=== PATIENT | male | born 1955 | race Caucasian/White ===

== ENCOUNTER 2016-10-29 07:13 | Inpatient (IN) | payer OTHER ==
--- NOTE | 2016-10-16 14:03 | HP ---
HISTORY AND PHYSICAL: DATE OF OFFICE VISIT: 10/16/16 DATE OF SURGERY: 10/29/16 PROCEDURE: Left total hip arthroplasty. HISTORY OF PRESENT ILLNESS: Phill is a 61-year-old gentleman with complaints of left hip pain. He has failed conservative management and has elected to proceed with the a left total hip arthroplasty . The surgery is scheduled for 10/29/[address] Whitley. PAST MEDICAL HISTORY: 1. Hypertension. 2. Hypercholesterolemia. PAST SURGICAL HISTORY: 1. ORIF left ankle. 2. Testicle surgery. CURRENT MEDICATIONS: 1. [place] 10/325 mg. 2. Atenolol/hydrochlorothiazide. 3. Atorvastatin. ALLERGIES: No known drug allergies. FAMILY HISTORY: Denies. SOCIAL HISTORY: This is a 61-year-old gentleman who lives alone. He is self- employed contractor. He smokes a pack and a half of cigarettes a day for the last 50 years. He does use alcohol. He de nies use of illicit drugs. REVIEW OF SYSTEMS: A complete 14-point review of systems was reviewed with the patient; all was neg ative or noncontributory. PHYSICAL EXAMINATION GENERAL: He is well developed, well nourished, in no acute distress. VITAL SIGNS: He stands 6 feet 2 inches tall, weighs 220 pounds, his blood pressure is 163/96, and h is heart rate is 64. HEENT: Normocephalic, atraumatic. NECK: Supple. No palpable lymph nodes. Trachea is midline. PULMONARY: The lungs are clear to auscultation bilaterally. No wheezes, rhonchi, or rales. CARDIO: Regular rate and rhythm. Strong S1, S2. No murmurs, gallops, or rubs. No peripheral edema . ABDOMEN: Soft, nontender, and nondistended. NEUROLOGIC: He is alert and oriented x3. Cranial nerves II through XII are intact. MUSCULOSKELETAL: Left lower extremity, the skin is intact. He walks with a slightly antalgic type gait favoring his left leg. He has limited range of motion with internal and external rotation of t he left hip. He has 2+ dorsalis pedis pulses. Intact sensation with pinprick and light touch over both legs and feet. His lower extremity muscular strengths were intact and 5/5. ASSESSMENT AND PLAN: Phill is a 61-year-old gentleman with complaints of left hip pain. He has fa iled conservative management and has elected to proceed with a left total hip arthroplasty. This malik rgery is scheduled for 10/29/[address] Whitley discussed the risks and benefits of the malik rgclarisse at today's visit and all of his questions were answered. Coumadin, Colace, and Percocet presc riptions were printed and given to the patient [facility] an d DVT prophylaxis. He will see Dr. Whitley back in 10 to 14 days after the surgery. ERNESTO GIVENS [id number]/[facility] #: [id number]
[~2016-10-29 07:13] MED LIST: Buffered Lidocaine 1% SYR 3ML* 3 ML/SYR SYRINGE INTRADERM ONE; Dexamethasone IV* 4 MG/ML 1 ML (4 MG) IV SLOW PU ONE; Famotidine IV* 10 MG/ML 2 ML (20 mg) IV ONE
[2016-10-29] MEDS ORDERED: ceFAZolin 2 GM PREMIX (*) 2 GM/50 ML BAG IVPB ONE (07:43)
[2016-10-29] MEDS ORDERED: Dexamethasone IV* 4 MG/ML 1 ML (4 MG) ONE (07:43)
[2016-10-29] MEDS ORDERED: Famotidine IV* 10 MG/ML 2 ML (20 mg) ONE (07:43)
[2016-10-29] MEDS ORDERED: Bupivacaine 0.5% SDV PF* 30 ML VIAL ONE ×2 (07:54→08:07)
[2016-10-29] MEDS ORDERED: HYDROmorphone INJ* 1 MG/ML CARPUJECT SYRINGE ONE ×2 (08:02→09:37)
[2016-10-29] MEDS ORDERED: Morphine PF AMP (0.5MG/ML)* 5 MG/10 ML AMP ONE (08:03)
[2016-10-29] MEDS ORDERED: Midazolam* 1 MG/ML 5 ML VIAL (5 MG) ONE (08:03)
[2016-10-29] MEDS ORDERED: fentaNYL* 50 MCG/ML 2 ML VIAL (100 MCG VIAL) ONE ×2 (08:03→09:37)
[2016-10-29] MEDS ORDERED: Propofol* 10 MG/ML 20 ML BTL IV PUSH ONE (08:07)
[2016-10-29] MEDS ORDERED: Dexmedetomidine* 200 MCG/2 ML 2 ML VIAL ONE (08:07)
[2016-10-29] MEDS ORDERED: Ondansetron INJ* 2 MG/ML VIAL IV PRN ×2 (08:26→13:06)
[2016-10-29] MEDS ORDERED: PROCHLORPERAZINE INJ 5 MG/ML 2 ML VIAL IV PRN ×2 (08:26→13:06)
[2016-10-29] MEDS ORDERED: DiMENhydriNATE IV* 50 MG/ML VIAL IV PUSH PRN ×2 (08:26→13:06)
[2016-10-29] MEDS ORDERED: fentaNYL* 50 MCG/ML 2 ML VIAL (100 MCG VIAL) IV PRN (08:26)
[2016-10-29] MEDS ORDERED: Glycopyrrolate IV* 0.2 MG/ML 1 ML VIAL ONE (11:21)
[2016-10-29] MEDS ORDERED: Naloxone* 0.4 MG/ML 1 ML VIAL IV PRN (13:06)
[2016-10-29] MEDS ORDERED: diPHENhydraMINE IV* 50 MG/ML 1 ml VIAL (BENADRYL) IV PRN (13:06)
[2016-10-29] MEDS ORDERED: Nalbuphine* 20 MG/ML 1 ML VIAL IV PRN (13:06)
[2016-10-29] MEDS ORDERED: Bisacodyl SUPP* 10 MG SUPP PR PRN (13:13)
[2016-10-29] MEDS ORDERED: Polyethylene Glycol 3350* 17 GM PACKET PO PRN (13:13)
[2016-10-29] MEDS ORDERED: LORazepam TAB(*) 0.5 MG PO PRN (13:25)
[2016-10-29] MEDS ORDERED: Scopolamine PATCH Remove* 1 NOTE MISC PATCH OFF SCH (14:00)
[2016-10-29] MEDS ORDERED: Enoxaparin(*) 30 MG/0.3 ML SYR SUBCUT SCH (14:00)
[2016-10-29] MEDS ORDERED: Scopolamine 1.5 mg* PATCH TRANSDERM SCH (14:00)
--- NOTE | 2016-10-29 14:54 | RAD ---
Indication: Left total hip replacement 2 views of the left hip demonstrates left hip replacement in satisfactory position. No loosening is noted. IMPRESSION: Left hip replacement in satisfactory position.
--- NOTE | 2016-10-29 14:55 | RAD ---
Indication: Left hip total replacement. Single view of the lower pelvis including the proximal femurs demonstrates bipolar left hip arthroplasty in satisfactory position. Components appear to be in satisfactory position. IMPRESSION: Left hip replacement in satisfactory position.
--- NOTE | 2016-10-29 15:12 | RAD ---
Indication: Left hip replacement Single view of the pelvis taken in the operating room demonstrates acetabular cup and femoral reamer in place. IMPRESSION: Single view of the pelvis performed for left hip prosthesis in evaluation.
[2016-10-29] MEDS: Nicotine PATCH 21 MG/24 HR* PATCH TRANSDERM SCH (15:45)
[2016-10-29] MEDS: ceFAZolin 1 GM in Dextrose (*) 1 GM/50 ML BAG IVPB SCH (16:26)
[2016-10-29] MEDS ORDERED: Warfarin TAB(*) 6 MG PO ONE (17:00)
--- NOTE | 2016-10-29 17:03 | CONS ---
CONSULTATION REPORT: DATE OF CONSULT: 10/29/16 PRIMARY CARE PROVIDER: ANGELITO Mars from [place] office in [place]. PHYSICIAN REQUESTING CONSULT: Dr. Whitley. CHIEF COMPLAINT: Status post left total hip arthroplasty. Consult was requested for medical management of this patient with a history of smoking, alcohol use, and hypertension. HISTORY OF PRESENT ILLNESS: Phill Carey is a 61-year-old male with a history of hypertension and dyslipidemia who has had problems with left hip osteoarthritic pain for the past several months and he is now status post left total hip arthroplasty performed by Dr. Whitley. The patient currently is residing in PACU area. He feels fine. He denies any pain. PAST MEDICAL HISTORY: 1. Hypertension. 2. Hypercholesterolemia. 3. Status post left ankle ORIF. 4. History of right foot surgery after trauma. 5. History of testicular surgery. MEDICATIONS: At home include: 1. [place] 10/325 mg p.r.n. 2. Hydrochlorothiazide 25 mg daily. 3. Atenolol 50 mg daily. 4. Lipitor 20 mg daily. ALLERGIES: No known drug allergies. FAMILY HISTORY: Reviewed and noncontributory. SOCIAL HISTORY: The patient is a self-employed contractor. His sister, Georgiana Henriquez, is his surrogate. He lives by himself. He smokes a pack a day of cigarettes and he has been doing so ever since he was 16 years old. He drinks 6 pack a day. He denies any drug use. REVIEW OF SYSTEMS: Positive for bilateral foot pain from his chronic osteoarthritic pain. Positive for left hip pain. He denies any chest pain or shortness of breath. All the remaining 14 systems were reviewed and were otherwise negative. PHYSICAL EXAM: Blood pressure of 121/75, heart rate of 78 and regular, respiratory rate 14, oxygen saturation 93% on 4 L of oxygen nasal cannula, and temperature 97.7. General: The patient is a very pleasant 61-year-old male who is in no acute distress. Alert, awake, and oriented x3. HEENT: Head: Atraumatic, normocephalic. Eyes: Pupils equal, reactive to light and accommodation. Oropharynx clear. Mucosa moist. Neck: Supple. No JVD, no bruit bilaterally. Cardiovascular: Regular rate and rhythm. No murmur. Respiratory: Clear to auscultation bilaterally. Abdomen: Soft, nontender. Bowel sounds present in all 4 quadrants. Extremities: There is no edema. Pulses are +2 bilaterally. No clubbing or cyanosis. On evaluation of the skin , the patient's left postoperative hip is covered with postop dressings, not removed. There is no evidence of hematoma or edema. Neuro Evaluation: Speech clear. Cranial nerves II through XII grossly intact. Motor strength is 5/5 bilaterally. DIAGNOSTIC STUDIES/LAB DATA: None recently performed. ASSESSMENT AND PLAN: A 61-year-old male with a history of alcohol abuse, tobacco smoking, and hypertension who presents status post left hip arthroplasty. 1. In regards to the patient's status post left hip arthroplasty, he is planning to go to [facility]. Case management to follow. 2. In regards to the patient's hypertension, his hydrochlorothiazide and his atenolol are going to be continued. 3. In regards to dyslipidemia, agree with continuation of Lipitor. 4. In regards to history of smoking, the patient was strongly advised to quit. He so far is not interested in quitting. He is going to be placed on nicotine patch for the time being. 5. In regards to history of alcohol use, the patient is going to be observed for withdrawal symptoms. 6. For DVT prophylaxis, it is going to be addressed by the primary service by Orthopedics. 7. Code status: The patient's code status is full. TIME SPENT: Approximately 55 minutes was spent on consultation of this patient , more than half that time was spent [id number] with the patient during the interview and physical exam. CC: ANGELITO Mars; Dr. Whitley* [id number]/[facility] #: [id number] [facility] CENTERIsmael
[2016-10-29] MEDS: oxyCODONE/Acetamin 5/325 MG* TAB PO PRN ×2 (18:32→22:22)
[2016-10-29] MEDS: Docusate CAP* 100 MG PO SCH (20:48)
[2016-10-29] MEDS: Magnesium Hydroxide LIQ* 30 ML UDC PO SCH (20:48)
[2016-10-29] MEDS ORDERED: Nicotine Patch Removal NOTE PATCH OFF SCH (21:00)
[2016-10-30] MEDS: ceFAZolin 1 GM in Dextrose (*) 1 GM/50 ML BAG IVPB SCH ×2 (00:11→07:58)
[2016-10-30] MEDS ORDERED: Morphine INJ* 10 MG/ML 1 ML CARPUJECT IV PRN (01:00)
[2016-10-30] MEDS ORDERED: Ondansetron TAB* 4 MG PO PRN (01:00)
[2016-10-30] MEDS ORDERED: oxyCODONE/Acetamin 5/325 MG* TAB PO PRN (01:00)
[2016-10-30] MEDS ORDERED: Ondansetron INJ* 2 MG/ML VIAL IV PRN (01:00)
[2016-10-30] MEDS ORDERED: diPHENhydraMINE PO* 25 MG PO PRN (01:00)
[2016-10-30] MEDS ORDERED: diPHENhydraMINE IV* 50 MG/ML 1 ml VIAL (BENADRYL) IV PRN (01:00)
[2016-10-30] MEDS: oxyCODONE TAB* 5 MG TAB PO PRN ×3 (03:25→11:58)
[2016-10-30] MEDS ORDERED: NS 0.9% 1000 ML* 1,000 ML IV ONE (05:30)
[2016-10-30 07:04] LABS: Hematocrit 39 % (42-52); Hemoglobin 13.6 g/dl (14.0-18.0)
[2016-10-30 07:16] LABS: BUN/Creatinine Ratio 18.1 (8-20); Calcium 8.8 mg/dL (8.6-10.3); EGFR African American 92.7 (>60); Potassium 3.6 mmol/L (3.5-5.0)
[2016-10-30] MEDS: Docusate CAP* 100 MG PO SCH (08:02)
[2016-10-30] MEDS: Nicotine PATCH 21 MG/24 HR* PATCH TRANSDERM SCH (08:02)
[2016-10-30] MEDS: Magnesium Hydroxide LIQ* 30 ML UDC PO SCH (08:04)
[2016-10-30] MEDS ORDERED: Hydrochlorothiazide TAB* 25 MG PO SCH (09:00)
[2016-10-30] MEDS ORDERED: Atorvastatin* 20 MG TAB PO SCH (09:00)
[2016-10-30] MEDS ORDERED: Thiamine TAB* 100 MG TAB PO SCH (09:00)
[2016-10-30] MEDS ORDERED: Folic Acid TAB* 1 MG PO SCH (09:00)
[2016-10-30] MEDS ORDERED: Atenolol TAB* 50 MG PO SCH (09:00)
--- NOTE | 2016-10-30 09:32 | PN ---
Subjective Date of Service: 10/30/16 Interval History: pt feels well. Plans to go to [facility] for rehab. Objective Active Medications: Atenolol (Tenormin Tab*) 50 mg PO QAM [facility] Last Admin: 10/30/16 08:02 Dose: 50 mg Atorvastatin Calcium (Lipitor*) 20 mg PO QAM [facility] Last Admin: 10/30/16 08:01 Dose: 20 mg Bisacodyl (Dulcolax Supp*) 10 mg [place] DAILY PRN PRN Reason: constipation Diphenhydramine HCl (Benadryl Iv*) 12.5 mg IV Q6H PRN PRN Reason: PRURITIS Diphenhydramine HCl (Benadryl Po*) 25 mg PO Q6H PRN PRN Reason: itching Docusate Sodium (Colace Cap*) 100 mg PO BID [facility] Last Admin: 10/30/16 08:02 Dose: 100 mg Enoxaparin Sodium (Lovenox(*)) 30 mg SUBCUT Q24H [facility] Folic Acid (Folvite Tab*) 1 mg PO DAILY [facility] Last Admin: 10/30/16 08:02 Dose: 1 mg Hydrochlorothiazide ([facility]il Tab*) [facility] Last Admin: 10/30/16 08:02 Dose: 25 mg Lactulose (Lactulose*) 30 ml PO Q6H PRN PRN Reason: constipation Lorazepam (Ativan Tab(*)) 0.5 mg PO Q4H PRN PRN Reason: AGITATION/ANXIETY Magnesium Hydroxide (Milk Of Magnesia Liq*) 30 ml PO BID [facility] Last Admin: 10/30/16 08:04 Dose: Not Given Morphine Sulfate (Morphine Inj (Syringe)*) 5 mg IV Q2H PRN PRN Reason: SEVERE PAIN Nicotine (Nicotine Patch 21 Mg/24 Hr*) 1 patch TRANSDERM 0800 [facility] Last Admin: 10/30/16 08:02 Dose: Not Given Ondansetron HCl (Zofran Inj*) 4 mg IV Q6H PRN PRN Reason: nausea Ondansetron HCl (Zofran Tab*) 4 mg PO Q6H PRN PRN Reason: NAUSEA Oxycodone HCl (Roxycodone Tab*) 10 mg PO Q4H PRN PRN Reason: breaktrough pain Last Admin: 10/30/16 08:01 Dose: 10 mg Oxycodone/Acetaminophen (Percocet 5/325 Tab*) 1 tab PO Q3H PRN PRN Reason: mild to moderate pain Pharmacy Profile Note (Scopolomine Patch Remove*) 1 note PATCH OFF .AFTER 72 HOURS [facility] Stop: 11/01/16 13:07 Pharmacy Profile Note (Nicotine Patch Removal Note*) 1 note PATCH OFF 2100 [facility] Last Admin: 10/29/16 20:46 Dose: Not Given Polyethylene Glycol/Electrolytes (Miralax*) 17 gm PO DAILY PRN PRN Reason: Constipation Scopolamine (Transderm-Scop 1.5 Mg Patch*) 1 patch TRANSDERM Q72H [facility] Last Admin: 10/29/16 15:46 Dose: Not Given Thiamine HCl (Vitamin B-1 Tab*) 100 mg PO DAILY [facility] Last Admin: 10/30/16 08:01 Dose: 100 mg Vital Signs 10/29/16 10/29/16 10/29/16 12:58 13:00 13:05 Temperature 97.7 F Pulse Rate 82 90 66 Respiratory 12 12 14 Rate Blood Pressure 132/88 151/87 148/78 (mmHg) O2 Sat by Pulse 95 92 92 Oximetry 10/29/16 10/29/16 10/29/16 13:10 13:15 13:30 Temperature Pulse Rate 70 68 78 Respiratory 12 12 14 Rate Blood Pressure 144/85 151/83 121/75 (mmHg) O2 Sat by Pulse 92 92 93 Oximetry 10/29/16 10/29/16 10/29/16 13:45 14:00 14:15 Temperature 97.0 F Pulse Rate 73 72 80 Respiratory 12 12 14 Rate Blood Pressure 134/75 123/77 119/81 (mmHg) O2 Sat by Pulse 93 94 94 Oximetry 10/29/16 10/29/16 10/29/16 14:39 15:15 15:19 Temperature 98.8 F 98.8 F Pulse Rate 76 74 74 Respiratory 16 16 16 Rate Blood Pressure 109/69 120/67 120/67 (mmHg) O2 Sat by Pulse 97 97 97 Oximetry 10/29/16 10/29/16 10/29/16 16:00 16:45 18:17 Temperature 98.8 F 98.1 F Pulse Rate 78 91 Respiratory 22 20 Rate Blood Pressure 120/73 118/74 (mmHg) O2 Sat by Pulse 96 97 97 Oximetry 10/29/16 10/29/16 10/29/16 18:27 18:32 19:09 Temperature Pulse Rate Respiratory 18 16 Rate Blood Pressure (mmHg) O2 Sat by Pulse 97 Oximetry 10/29/16 10/29/16 10/29/16 19:20 20:32 20:40 Temperature 98.5 F Pulse Rate 102 Respiratory 16 16 16 Rate Blood Pressure 123/72 (mmHg) O2 Sat by Pulse 95 Oximetry 10/29/16 10/29/16 10/29/16 21:09 22:22 23:09 Temperature Pulse Rate Respiratory 16 16 16 Rate Blood Pressure (mmHg) O2 Sat by Pulse Oximetry 10/30/16 10/30/16 10/30/16 00:00 00:06 00:09 Temperature 97.9 F Pulse Rate 85 Respiratory 18 16 Rate Blood Pressure 136/70 (mmHg) O2 Sat by Pulse 95 95 Oximetry 10/30/16 10/30/16 10/30/16 00:22 02:06 03:06 Temperature Pulse Rate Respiratory 17 16 17 Rate Blood Pressure (mmHg) O2 Sat by Pulse Oximetry 10/30/16 10/30/16 10/30/16 03:22 03:25 05:06 Temperature 97.9 F Pulse Rate 76 Respiratory 16 16 16 Rate Blood Pressure 136/82 (mmHg) O2 Sat by Pulse 91 Oximetry 10/30/16 10/30/16 10/30/16 05:25 07:42 08:01 Temperature 97.5 F Pulse Rate 78 Respiratory 16 18 16 Rate Blood Pressure 122/67 (mmHg) O2 Sat by Pulse 96 Oximetry Oxygen Devices in Use Now: None Appearance: 61 yo M in nAD, aAOx3 Eyes: No Scleral Icterus, PERRLA Ears/Nose/Mouth/Throat: NL Teeth, Lips, Gums, Mucous Membranes Moist Neck: NL Appearance and Movements; NL JVP, Trachea Midline Respiratory: Symmetrical Chest Expansion and Respiratory Effort, Clear to Auscultation Cardiovascular: NL Sounds; No Murmurs; No JVD, RRR Abdominal: NL Sounds; No Tenderness; No Distention, No Hepatosplenomegaly Lymphatic: No Cervical Adenopathy Extremities: No Edema, No Clubbing, Cyanosis Skin: No Nodules or Sclerosis, - - left thigh evaluated, no hematoma or erythema noted, post op dressings not removed Result Diagrams: 10/30/16 06:06 10/30/16 06:06 Assess/Plan/Problems-Billing Assessment: 61 yo M with h/o ETOH/tobacco abuse, HTN, dyslipidemia s/p left hip replacement by Dr. Whitley on 10/29/16 - Patient Problems (1) Status post left hip replacement Comment: doing well, as per Dr. Whitley (2) HTN (hypertension) Comment: cont Atenolol and HCTZ, controled (3) Tobacco abuse Comment: counseled on 10/29/16 cont nicotine patch (4) ETOH abuse Comment: drinks 6 pack /day, no signs of withdrawal. cont to monitor (5) DVT prophylaxis Comment: on lovenox and coumadin as per orthopedic service
--- NOTE | 2016-10-30 10:00 | PN ---
Progress Note - Progress Note SOAP: Subjective: [61 y/o male s/p left total hip replacement 10/29. VSS, afebrile. eager for D/C today. No compliants, pain well tolerated, PO pain medications working well. ] Objective: [General- Well appearing, sitting in bed comfortably. MSK- Dressing intact, no drainage noted, + DF/PF. neg homans L leg, minimal swelling, L LE"s. sensation grossly intact. Vital Signs Temp 97.5 F 10/30/16 07:42 Pulse 78 10/30/16 07:42 Resp 16 10/30/16 08:01 BP 122/67 10/30/16 07:42 Pulse Ox 96 10/30/16 07:42 Intake & Output 10/29/16 10/30/16 10/30/16 18:59 06:59 18:59 Intake Total 4010 1946 440 Output Total 700 100 Balance 3310 1846 440 Weight 214 lb 6.4 oz Intake: IV Fluids 2600 1281 LR 2500 1281 NS 50ML, Cefazolin 2G 100 IVPB 105 ABX - CEFAZOLIN 105 Oral 1410 560 440 Output: Urine 100 Schrader 400 0 Estimated Blood Loss 300 Laboratory Results - last 24 hr 10/30/16 10/30/16 10/30/16 06:06 06:06 06:06 Hgb 13.6 L Hct 39 L INR (Anticoag Therapy) 0.98 Sodium 131 L Potassium 3.6 Chloride 95 L Carbon Dioxide 28 Anion Gap 8 BUN 19 Creatinine 1.05 Est GFR ( Amer) 92.7 Est GFR (Non-Af Amer) 72.0 BUN/Creatinine Ratio 18.1 Glucose 142 H Calcium 8.8 ] Assessment: [61 y/o male s/p left total hip replacement 10/29] Plan: [- DVT prophyl- coumadin 6mg tonight, continue lovenox. - Continue PT/ OT - H&H stable ] Active Medications Generic Name Dose Route Start Last Admin Trade Name Freq PRN Reason Stop Dose Admin Atenolol 50 mg 10/30/16 09:00 10/30/16 08:02 Tenormin Tab* PO 50 mg QAM [facility] Administration Atorvastatin Calcium 20 mg 10/30/16 09:00 10/30/16 08:01 Lipitor* PO 20 mg QAM [facility] Administration Bisacodyl 10 mg 10/29/16 13:13 Dulcolax Supp* [place] DAILY PRN constipation Diphenhydramine HCl 12.5 mg 10/30/16 01:00 Benadryl Iv* IV Q6H PRN PRURITIS Diphenhydramine HCl 25 mg 10/30/16 01:00 Benadryl Po* PO Q6H PRN itching Docusate Sodium 100 mg 10/29/16 21:00 10/30/16 08:02 Colace Cap* PO 100 mg BID [facility] Administration Enoxaparin Sodium 30 mg 10/30/16 14:00 Lovenox(*) SUBCUT Q24H [facility] Folic Acid 1 mg 10/30/16 09:00 10/30/16 08:02 Folvite Tab* PO 1 mg DAILY [facility] Administration Hydrochlorothiazide 25 mg 10/30/16 09:00 10/30/16 08:02 Hydrodiuril Tab* PO 25 mg QAM [facility] Administration Lactulose 30 ml 10/29/16 13:13 Lactulose* PO Q6H PRN constipation Lorazepam 0.5 mg 10/29/16 13:25 Ativan Tab(*) PO Q4H PRN AGITATION/ANXIETY Magnesium Hydroxide 30 ml 10/29/16 21:00 10/30/16 08:04 Milk Of Magnesia Liq* PO Not Given BID [facility] Morphine Sulfate 5 mg 10/30/16 01:00 Morphine Inj (Syringe)* IV Q2H PRN SEVERE PAIN Nicotine 1 patch 10/29/16 14:00 10/30/16 08:02 Nicotine Patch 21 Mg/24 Hr* TRANSDERM Not Given 0800 [facility] Ondansetron HCl 4 mg 10/30/16 01:00 Zofran Inj* IV Q6H PRN nausea Ondansetron HCl 4 mg 10/30/16 01:00 Zofran Tab* PO Q6H PRN NAUSEA Oxycodone HCl 10 mg 10/30/16 01:00 10/30/16 08:01 Roxycodone Tab* PO 10 mg Q4H PRN Administration breaktrough pain Oxycodone/Acetaminophen 1 tab 10/30/16 01:00 Percocet 5/325 Tab* PO Q3H PRN mild to moderate pain Pharmacy Profile Note 1 note 10/29/16 14:00 Scopolomine Patch Remove* PATCH OFF 11/01/16 13:07 .AFTER 72 HOURS [facility] Pharmacy Profile Note 1 note 10/29/16 21:00 10/29/16 20:46 Nicotine Patch Removal Note* PATCH OFF Not Given 2100 [facility] Polyethylene Glycol/Electrolytes 17 gm 10/29/16 13:13 Miralax* PO DAILY PRN Constipation Scopolamine 1 patch 10/29/16 14:00 10/29/16 15:46 Transderm-Scop 1.5 Mg Patch* TRANSDERM Not Given Q72H [facility] Thiamine HCl 100 mg 10/30/16 09:00 10/30/16 08:01 Vitamin B-1 Tab* PO 100 mg DAILY [facility] Administration
--- NOTE | 2016-10-30 11:32 | OP ---
OPERATIVE REPORT: DATE OF OPERATION: 10/29/16 DATE OF : 57 SURGEON: Sade Whitley MD WRIST HEMMER: ERNESTO Gabriel ANESTHESIOLOGIST: Dr. Jon. ANESTHESIA: Spinal. PRE-OP DIAGNOSIS: Severe end-stage degenerative osteoarthritis of the left hip joint. POST-OP DIAGNOSIS: Severe end-stage degenerative osteoarthritis of the left hip joint. OPERATIVE PROCEDURE: Total hip arthroplasty. COMPLICATIONS: None. ESTIMATED BLOOD LOSS: 400 cc. SPECIMENS: Femoral head and acetabular reaming sent to pathology. HARDWARE USED: This is uncemented Valente total hip hardware. For the cup, a Tritanium hemispheric al cluster hole shell size 62G. Insert as a Trident X3 0- degree polyethylene insert 40G. For the femur, an Accolade TMZF size 4, 132-degree neck with Biolox delta ceramic head size 40 with +4 adapt er sleeve. BRIEF HISTORY/INDICATIONS: Mr. Carey is a 61-year-old gentleman with years of increasingly severe left hip pain. He failed conservative treatment with antiinflammatories, pain medications, and phys ical therapy. Radiographs showed [id number] arthritis and he elected to undergo left total hip ar throplasty due to continued pain and decreased quality of life. Informed consent was obtained from the patient. He understood the risks of the procedure included b ut were not limited to bleeding, infection, damage to nearby structures, continued pain, need for fu rther surgery, intraoperative fracture, nerve palsy, hardware failure or loosening, dislocation, leg length discrepancy, stroke, heart attack, blood clot, . He wished to proceed. INTRAOPERATIVE FINDINGS: Intraoperatively, the patient was noted to have severe end-stage arthritis of the hip joint with complete loss of cartilage in the femoral head and acetabulum. Significant o steophyte formation along the entire femoral head neck junction and acetabular rim. DESCRIPTION OF PROCEDURE: Mr. Carey was identified in the preoperative unit. His left lower extre mity was marked as the correct operative side. Informed consent was signed and placed in the chart. The patient was taken to the operating room and placed under spinal anesthesia. A Schrader catheter was placed. The patient was placed in the right lateral decubitus position on the peg board and all bony prominences were well padded. The left lower extremity was prepped and draped in the usual st erile fashion. Preop time-out was made to correctly identify the patient, side, and site. Appropri ate perioperative antibiotics were given within 1 hour of incision. A 12-cm posterior hip incision was made with a #10 blade and carried down to the lateral fascial lay er. Lateral fascial layer was incised in line with skin incision. A Charnley retractor was placed. Posterior aspect of the hip joint was easily visualized. The piriformis and conjoint tendons were identified. These were elevated off the posterolateral femur using electrocautery and tagged with two #5 Ethibond. Next, the electrocautery was used to make a standard posterolateral capsular flap. This flap was also tagged with two #5 Ethibond. The hip was carefully dislocated at this point. Lesser trochanter to center of the femoral head measured 60 mm. Oscillating saw was used to make th e appropriate femoral neck cut. The femoral head was carefully removed and sent to pathology. The femur was carefully retracted anteriorly. After appropriate placement of retractor, the acetabu lum was easily visualized. A long-handled knife was used to remove any remaining labrum from the ac etabular rim. Electrocautery was used to remove soft tissue and inflammatory fibrous tissue from th e cotyloid notch region. Next, the acetabulum was sequentially reamed up to a size 61. 61 trial had excellent stability. A 62 Tritanium cluster hole shell was chosen as a final implant. This was impacted into the acetabu lum without difficulty. There was excellent stability as well as appropriate anteversion and abduct ion angle. A Trident X3 0-degree polyethylene insert 40G was chosen. This was impacted into the ac etabulum without difficulty. Next, attention was turned to preparation of the proximal femur. Box cut osteotome and canal finder were used to enter the proximal femur. The proximal femur was sequentially broached up to a size 4 . A 132-degree neck trial was chosen as well as a 40 +0 femoral head trial. The hip was reduced an d taken through range of motion. The hip was stable in all positions. The hip was carefully dislocated. All trials were carefully removed. An Accolade TMZF size 3 with a 132-degree neck was chosen as final implant. This was impacted into the femoral canal without dif ficulty. There was excellent stability and fit. A 40 +4 ceramic Biolox femoral head was chosen with an adapter sleeve. This was impacted onto the femoral neck without difficulty. The hip was reduce d and taken through range of motion. The hip was stable in all positions. Previously tagged capsul e and tendons were reapproximated to the posterolateral femur through two trochanteric drill holes. The hip was copiously irrigated with sterile saline. The lateral fascial layer was closed using int errupted #1 Vicryl's. The rest of the incision was closed in a layered fashion using 0 and 2-0 Vicr yl's. Skin was closed using running 3-0 Monocryl suture and Dermabond. Sterile Adaptic,4x4's and p aper tape were used to cover the incision. The patient's anesthesia was reversed without difficulty. He was taken to the PACU in stable condit ion. Intended weightbearing will be weightbearing as tolerated with posterior hip precautions. Int ended DVT prophylaxis will be Coumadin with Lovenox bridge. [id number]/[facility] #: [id number]
[2016-10-30 13:16] VITALS: BP 133/75
[2016-10-30] MEDS ORDERED: Enoxaparin(*) 30 MG/0.3 ML SYR SUBCUT SCH (14:00)
--- NOTE | 2016-10-31 03:22 | DS ---
DISCHARGE SUMMARY: DATE OF ADMISSION: 10/29/16 DATE OF DISCHARGE: 10/30/16 SURGEON: Sade Whitley MD PRINCIPAL DIAGNOSIS: Severe end-stage osteoarthritis of the left hip. DISCHARGE DIAGNOSIS: Severe end-stage osteoarthritis of the left hip. HISTORY OF PRESENT ILLNESS: Mr. Carey is a 61-year-old gentleman with severe left hip pain seconda ry to end-stage degenerative osteoarthritis. He failed conservative management and elected to proce ed with the left total hip arthroplasty, which was completed 10/29/16. HOSPITAL COURSE: Mr. Carey was admitted to the hospital electively on 10/29/16 and underwent a lef t total hip arthroplasty by Dr. Whitley, which he tolerated well with no complications. Postoperative ly, he was placed on Coumadin and Lovenox for DVT prophylaxis. Physical therapy was ordered and he was out of bed, ambulating without difficulty by postop day #1. Postop day 1, his H and H was 13.6 and 39. His hospital course was overall unremarkable at the time of discharge on 10/30/16, he was af ebrile and ambulating well. DISCHARGE MEDICATIONS: 1. Lipitor. 2. Atenolol. 3. Dulcolax. 4. Percocet. 5. Ativan. 6. Aspirin. 7. Vitamin B1. PHYSICAL EXAMINATION: Upon discharge, Mr. Carey is afebrile. His vital signs were stable. His in cisions were clean, dry and healing well. No signs of infection. He is ambulating without difficul ty with only a slightly antalgic type gait secondary to pain. His lower extremity muscular strength s were intact with 5/5. He has intact sensation to pinprick and light touch. 2+ dorsalis pedis pul ses. DISCHARGE INSTRUCTIONS: He was discharged home. He was asked to follow up with Dr. Whitley in 10 to 14 days. For DVT prophylaxis, has elected to place him on aspirin 325 twice a day for a month. He was given a prescription for Percocet for pain control as well as Colace to help prevent constipatio n. He is allowed to shower and let the soap and water run over the incision, pat the area dry. He is not allowed to take bath. We have asked him to call our office with any questions or concerns. Otherwise, we will see him at his regularly scheduled postoperative visit in 10 to 14 days. ERNESTO GIVENS [id number]/[facility] #: [id number]
== END 2016-10-30 14:15 | disposition home health service (06) | DRG 301 ==
LOC: AA 07:13 → SSU 14:42
PROVIDERS: ADMIT Orthopaedic Surgery Adult Reconstructive Orthopaedic Surgery; ATTEND Orthopaedic Surgery Adult Reconstructive Orthopaedic Surgery
PROC: 0SRB04A Replacement of Left Hip Joint with Ceramic on Polyethylene Synthetic Substitute, Uncemented, Open Approach (ICD-10-PCS; principal; 2016-10-29 09:00)
DX: M16.12 Unilateral primary osteoarthritis, left hip (principal); I10 Essential (primary) hypertension; Z79.82 Long term (current) use of aspirin; F17.210 Nicotine dependence, cigarettes, uncomplicated; F10.10 Alcohol abuse, uncomplicated; Y90.9 Presence of alcohol in blood, level not specified; E78.5 Hyperlipidemia, unspecified
CPT/HCPCS: 36415; 72170; 80048; 85014; 85018; 85610; 88304; 88311; 99406; A9270-GY; C1776; J0690; J1100; J1170; J1650; J2250; J2704; J3010